=== PATIENT | female | born 2005 | race Two or more races ===

== ENCOUNTER 2025-03-10 13:58 | Emergency (ER) | payer BC ==
[~2025-03-10] VITALS: Ht 157.5 cm; Wt 81.6 kg
[2025-03-10] MEDS ORDERED: ONDA4TAB5 PO (14:58)
[2025-03-10 15:22] LABS: PLATELET COUNT (AUTO) 230 K/uL (150-450); RED BLOOD CELL COUNT(AUTO) 4.70 MIL/uL (4.0-5.2); RED CELL DISTRIBUTION WIDTH 14.7 % (11.5-15.0); WHITE BLOOD COUNT (AUTO) 6.9 K/uL (4.3-11.0)
[2025-03-10 15:24] LABS: APPEARANCE,URINE CLEAR (CLEAR); BLOOD, URINE TRACE-INTA Ery/uL (NEGATIVE); LEUKOCYTE ESTERASE ,URINE 1+ (NEGATIVE); NITRITE, URINE NEGATIVE (NEGATIVE); UGLUCOSE NEGATIVE (NEGATIVE)
[2025-03-10 15:27] LABS: PREGNANCY TEST URINE QUAL NEGATIVE (NEGATIVE)
[2025-03-10 15:31] LABS: CALCIUM, SERUM 9.3 mg/dL (8.5-10.1); CREATININE 0.8 mg/dL (0.6-1.3); SODIUM SERUM 135 mmol/L (136-145); UREA NITROGEN, BLOOD 9 mg/dL (7-18)
[2025-03-10 15:39] LABS: SQUAMOUS EPITHELIAL CELL,UR Many /HPF (None Seen)
[2025-03-10 15:40] LABS: ADD URINE CULTURE YES
[2025-03-10 16:43] VITALS: BP 110/82; TEMP 98; O2SAT 99
== END 2025-03-10 16:15 | disposition home or self-care (01) ==
LOC: ER 14:07
DX: R07.89 Other chest pain (principal); R42 Dizziness and giddiness; R11.0 Nausea; R06.02 Shortness of breath; F31.9 Bipolar disorder, unspecified; Z79.899 Other long term (current) drug therapy
CPT/HCPCS: 36415; 71045-TC; 80048-TC; 81001; 83880; 84484-TC; 84703-TC; 85025-TC; 87086-TC